=== PATIENT | male | born 1975 | race Hispanic/Latino ===

== ENCOUNTER 2020-11-22 10:12 | Inpatient (IN) | payer MEDICARE, OTHER ==
[~2020-11-22] VITALS: Ht 180.3 cm; Wt 90.6 kg
[2020-11-22] VITALS (20 sets, daily range): BP systolic 95–145; BP diastolic 47–75
[2020-11-22 11:13] LABS: BASOPHILS % (AUTO) 0.3 % (0.0-5.0); EOSINOPHILS % (AUTO) 0.3 % (0.0-8.0); HEMATOCRIT 38.8 % (42-54); LYMPHOCYTES % (AUTO) 8.9 % (21.0-51.0); MEAN CORPUSCULAR HGB CONC 34.8 g/dL (32.0-36.0); MEAN CORPUSCULAR VOLUME 91.9 fL (79-99); MONOCYTES % (AUTO) 4.5 % (3.0-13.0); NEUTROPHILS % (AUTO) 85.2 % (40.0-77.0); PLATELET COUNT (AUTO) 283 K/uL (130-400); RED BLOOD CELL COUNT(AUTO) 4.22 MIL/uL (4.50-6.20); RED CELL DISTRIBUTION WIDTH 12.1 % (11.0-15.5); WHITE BLOOD COUNT (AUTO) 20.5 K/uL (4.8-10.8)
[2020-11-22 11:22] LABS: CREATININE 1.4 mg/dL (0.5-1.5); POTASSIUM 3.2 mmol/L (3.5-5.1)
[2020-11-22 11:26] LABS: BILIRUBIN,TOTAL 0.9 mg/dL (0.2-1.0); TOTAL PROTEIN, SERUM 8.1 g/dL (6.0-8.3)
[2020-11-22] MEDS ORDERED: 0.9%NACL 1000ML 1,000 ML IV ONE (12:30)
[2020-11-22] MEDS ORDERED: ZOSYN 3.375GM+NS 50ML 3.38 GM in 0.9%NACL 50ML 50 ML IV SCH (12:30)
[2020-11-22] MEDS ORDERED: ZOSYN 3.375GM+NS 50ML 50 ML IV SCH (13:00)
[2020-11-22] MEDS ORDERED: GLUCAGON 1MG KIT 1 MG ML IM PRN ×2 (13:30→15:30)
[2020-11-22] MEDS ORDERED: ACETAMINOPHEN 325 MG TAB PO PRN (13:30)
[2020-11-22] MEDS ORDERED: VANCOMYCIN PROTOCOL PER PHARMACY IV SCH (13:30)
[2020-11-22] MEDS ORDERED: ONDANSETRON 4MG INJ IV PRN (13:30)
[2020-11-22] MEDS ORDERED: DIPHENHYDRAMINE HCL 25 MG CAPSULE PO PRN (13:30)
[2020-11-22] MEDS ORDERED: DEXTROSE 50%-WATER 50 ML DISP.SYRIN IV PRN ×2 (13:30→15:30)
[2020-11-22 13:51] LABS: ABG BASE EXCESS -4.2 mmol/L (-2.0-3.0); ABG OXYGEN SATURATION 96.2 % (95.0-99.0); ABG PCO2 30 mmHg (35-48)
[2020-11-22] MEDS ORDERED: COMPOUND IV REFRIGERATED 1 EACH IVSOLN MISC PRN (14:00)
[2020-11-22] MEDS ORDERED: 0.9%NACL 1000ML 2,259 ML IV ONE (15:00)
[2020-11-22] MEDS ORDERED: MIDAZOLAM HCL 1 MG/ML 2ML VIAL ONE (15:14)
[2020-11-22] MEDS ORDERED: PROPOFOL 10 MG/ML 20ML VIAL IV ONE (15:16)
[2020-11-22] MEDS ORDERED: SUCCINYLCHOLINE CHLORIDE 20 MG/ML 10 ML VIAL ONE (15:16)
[2020-11-22] MEDS ORDERED: LIDOCAINE PF 100MG/5ML (2%) SYRINGE 5ML ONE (15:16)
[2020-11-22] MEDS ORDERED: FENTANYL CITRATE PF 50 MCG/1 ML 2ML VIAL ONE ×2 (15:20→15:44)
[2020-11-22] MEDS ORDERED: VANCOMYCIN 1.75GM/250ML NS IV ONE ×2 (16:00)
[2020-11-22] MEDS: 0.9%NACL 1000ML 1,000 ML IV SCH ×3 (16:13→23:30)
[2020-11-22] MEDS ORDERED: MEPERIDINE-PF 25 MG/ML SYG ONE (16:21)
[2020-11-22] MEDS ORDERED: INSULIN HUMULIN R 100 UNIT/ML 3ML SQ SCH (16:30)
[2020-11-22 16:45] LABS: HEMOGLOBIN A1C 11.1 % (4.0-6.0)
[2020-11-22] MEDS: ACETAMINOPHEN 325 MG TAB PO PRN (20:12)
[2020-11-22] MEDS: ZOSYN 3.375GM+NS 50ML IV SCH (20:17)
[2020-11-22] MEDS: FAMOTIDINE 20MG VIAL IV SCH (20:17)
[2020-11-23] VITALS (7 sets, daily range): BP systolic 106–151; BP diastolic 62–78
[2020-11-23] MEDS ORDERED: 0.9% NACL 250ML 250 ML IV SCH (04:00)
[2020-11-23] MEDS ORDERED: VANCOMYCIN KIT 1 GM/250 ML IV.KIT IV SCH (04:00)
[2020-11-23] MEDS: ZOSYN 3.375GM+NS 50ML IV SCH ×3 (05:31→21:18)
[2020-11-23] MEDS: 0.9%NACL 1000ML 1,000 ML IV SCH ×2 (05:38→21:18)
[2020-11-23 06:47] LABS: HEMATOCRIT 30.1 % (42-54); MEAN CORPUSCULAR HEMOGLOBIN 31.4 pg (27.0-33.0); MEAN CORPUSCULAR HGB CONC 33.9 g/dL (32.0-36.0); MEAN CORPUSCULAR VOLUME 92.6 fL (79-99); RED BLOOD CELL COUNT(AUTO) 3.25 MIL/uL (4.50-6.20); RED CELL DISTRIBUTION WIDTH 12.3 % (11.0-15.5); WHITE BLOOD COUNT (AUTO) 17.2 K/uL (4.8-10.8)
[2020-11-23 08:00] LABS: ALBUMIN 1.3 g/dL (3.5-5.0); BILIRUBIN,TOTAL 0.7 mg/dL (0.2-1.0)
[2020-11-23] MEDS: INSULIN HUMULIN R 100 UNIT/ML 3ML SQ SCH ×7 (08:06→21:00)
[2020-11-23] MEDS: INSULIN GLARGINE 100 UNITS/ML 10 ML VIAL SQ SCH (08:17)
[2020-11-23] MEDS: ENOXAPARIN SODIUM 30 MG/0.3 ML SQ SCH (08:20)
[2020-11-23] MEDS: FAMOTIDINE 20MG VIAL IV SCH ×2 (08:20→21:18)
[2020-11-23 09:29] LABS: POTASSIUM 2.7 mmol/L (3.5-5.1)
[2020-11-23] MEDS: POTASSIUM CHLORIDE 20MEQ/100ML 100 ML IV PRN ×2 (10:11→18:09)
[2020-11-23] MEDS ORDERED: KCL 20 MEQ ERTAB PO SCH (10:30)
[2020-11-23] MEDS: ACETAMINOPHEN 325 MG TAB PO PRN (14:01)
[2020-11-23] MEDS ORDERED: MORPHINE 4 MG SYG ONE (16:10)
[2020-11-23] MEDS: VANCOMYCIN KIT 1 GM/250 ML IV.KIT IV SCH (16:59)
[2020-11-23] MEDS: MORPHINE 2 MG SYG IVP PRN (20:19)
[2020-11-24] MEDS: VANCOMYCIN KIT 1 GM/250 ML IV.KIT IV SCH ×3 (00:21→20:00)
[2020-11-24] MEDS: MORPHINE 4 MG SYG IV PRN ×2 (00:21→14:42)
[2020-11-24] MEDS: 0.9% NACL 250ML 250 ML IV SCH ×3 (00:21→16:00)
[2020-11-24 04:04] VITALS: BP 136/72
[2020-11-24] MEDS: ZOSYN 3.375GM+NS 50ML IV SCH ×3 (06:00→20:45)
[2020-11-24] MEDS: 0.9%NACL 1000ML 1,000 ML IV SCH ×2 (06:01→15:30)
[2020-11-24] MEDS: INSULIN HUMULIN R 100 UNIT/ML 3ML SQ SCH ×7 (06:53→21:00)
[2020-11-24 07:35] VITALS: BP 130/71
[2020-11-24] MEDS: INSULIN GLARGINE 100 UNITS/ML 10 ML VIAL SQ SCH (08:59)
[2020-11-24 09:01] LABS: HEMATOCRIT 30.8 % (42-54); MEAN CORPUSCULAR HEMOGLOBIN 31.7 pg (27.0-33.0); MEAN CORPUSCULAR HGB CONC 34.4 g/dL (32.0-36.0); MEAN CORPUSCULAR VOLUME 92.2 fL (79-99); RED BLOOD CELL COUNT(AUTO) 3.34 MIL/uL (4.50-6.20); RED CELL DISTRIBUTION WIDTH 12.8 % (11.0-15.5)
[2020-11-24] MEDS: ENOXAPARIN SODIUM 30 MG/0.3 ML SQ SCH (09:01)
[2020-11-24] MEDS: FAMOTIDINE 20MG VIAL IV SCH ×2 (09:02→20:46)
[2020-11-24] MEDS: MORPHINE 2 MG SYG IVP PRN ×2 (09:04→18:08)
[2020-11-24 09:16] LABS: ALBUMIN 1.3 g/dL (3.5-5.0); BILIRUBIN,TOTAL 0.6 mg/dL (0.2-1.0); CREATININE 0.9 mg/dL (0.5-1.5); TOTAL PROTEIN, SERUM 6.5 g/dL (6.0-8.3)
[2020-11-24 09:20] LABS: POTASSIUM 2.9 mmol/L (3.5-5.1)
[2020-11-24 11:35] VITALS: BP 150/76
[2020-11-24] MEDS: POTASSIUM CHLORIDE 20MEQ/100ML 100 ML IV PRN (12:05)
[2020-11-24] MEDS: LIDOCAINE HCL-MPF 1% 2ML VIAL IV PRN (12:10)
[2020-11-24] MEDS ORDERED: SODIUM HYPOCHLORITE 0.125% 473 ML SOLUTION TP SCH (15:00)
[2020-11-24 15:35] VITALS: BP 134/65
[2020-11-24 20:00] VITALS: BP 141/73
[2020-11-24] MEDS ORDERED: LIDOCAINE HCL-MPF 1% 2ML VIAL IV PRN (20:30)
[2020-11-24] MEDS ORDERED: POTASSIUM CHLORIDE 10% ELIXIR 20 MEQ/15 ML UDCUP PO PRN (20:30)
[2020-11-24] MEDS ORDERED: POTASSIUM CHLORIDE 20MEQ/100ML 100 ML IV PRN (20:30)
[2020-11-24] MEDS: KCL 20 MEQ ERTAB PO PRN (20:47)
[2020-11-25] VITALS: BP 140/67
[2020-11-25] MEDS: 0.9% NACL 250ML 250 ML IV SCH ×3 (00:44→16:29)
[2020-11-25] MEDS: VANCOMYCIN KIT 1 GM/250 ML IV.KIT IV SCH ×3 (00:44→16:29)
[2020-11-25] MEDS: MORPHINE 2 MG SYG IVP PRN ×3 (00:44→09:26)
[2020-11-25] MEDS: 0.9%NACL 1000ML 1,000 ML IV SCH ×3 (02:18→21:17)
[2020-11-25 04:00] VITALS: BP 139/68
[2020-11-25] MEDS: ZOSYN 3.375GM+NS 50ML IV SCH ×3 (05:20→20:54)
[2020-11-25] MEDS: INSULIN HUMULIN R 100 UNIT/ML 3ML SQ SCH ×7 (06:25→20:55)
[2020-11-25 07:30] LABS: HEMATOCRIT 29.3 % (42-54); MEAN CORPUSCULAR HEMOGLOBIN 31.7 pg (27.0-33.0); MEAN CORPUSCULAR HGB CONC 34.1 g/dL (32.0-36.0); RED BLOOD CELL COUNT(AUTO) 3.15 MIL/uL (4.50-6.20); RED CELL DISTRIBUTION WIDTH 12.9 % (11.0-15.5); WHITE BLOOD COUNT (AUTO) 15.2 K/uL (4.8-10.8)
[2020-11-25 07:40] VITALS: BP 144/70
[2020-11-25 07:47] LABS: ALBUMIN 1.2 g/dL (3.5-5.0); BILIRUBIN,TOTAL 0.6 mg/dL (0.2-1.0); CREATININE 0.8 mg/dL (0.5-1.5); TOTAL PROTEIN, SERUM 6.2 g/dL (6.0-8.3)
[2020-11-25 07:50] LABS: POTASSIUM 2.7 mmol/L (3.5-5.1)
[2020-11-25] MEDS: ENOXAPARIN SODIUM 30 MG/0.3 ML SQ SCH (09:28)
[2020-11-25] MEDS: INSULIN GLARGINE 100 UNITS/ML 10 ML VIAL SQ SCH (09:38)
[2020-11-25] MEDS: FAMOTIDINE 20MG VIAL IV SCH ×2 (09:39→20:53)
[2020-11-25 11:35] VITALS: BP 131/68
[2020-11-25] MEDS: LIDOCAINE HCL-MPF 1% 2ML VIAL IV PRN (12:23)
[2020-11-25] MEDS: POTASSIUM CHLORIDE 20MEQ/100ML 100 ML IV PRN (12:24)
[2020-11-25 15:35] VITALS: BP 159/77
[2020-11-25] MEDS: MORPHINE 4 MG SYG IV PRN (16:42)
[2020-11-25] MEDS: KCL 20 MEQ ERTAB PO PRN ×2 (19:27→21:18)
[2020-11-25 20:00] VITALS: BP 131/60
[2020-11-25] MEDS: MAGNESIUM 2GM PREMIX 50ML 50 ML IV PRN (20:54)
[2020-11-26] VITALS: BP 153/42
[2020-11-26] MEDS: VANCOMYCIN KIT 1 GM/250 ML IV.KIT IV SCH ×2 (01:12→08:04)
[2020-11-26] MEDS: 0.9% NACL 250ML 250 ML IV SCH ×3 (01:12→17:09)
[2020-11-26] MEDS: MORPHINE 4 MG SYG IV PRN ×2 (01:20→20:38)
[2020-11-26 04:00] VITALS: BP 143/71
[2020-11-26] MEDS: ZOSYN 3.375GM+NS 50ML IV SCH ×3 (05:12→20:38)
[2020-11-26 06:02] LABS: MEAN CORPUSCULAR HEMOGLOBIN 31.4 pg (27.0-33.0); MEAN CORPUSCULAR HGB CONC 33.4 g/dL (32.0-36.0); MEAN CORPUSCULAR VOLUME 93.9 fL (79-99); RED BLOOD CELL COUNT(AUTO) 3.09 MIL/uL (4.50-6.20); WHITE BLOOD COUNT (AUTO) 14.4 K/uL (4.8-10.8)
[2020-11-26 06:17] LABS: ALBUMIN 1.2 g/dL (3.5-5.0); BILIRUBIN,TOTAL 0.6 mg/dL (0.2-1.0); CREATININE 0.8 mg/dL (0.5-1.5); MAGNESIUM 1.8 mg/dL (1.80-2.40); TOTAL PROTEIN, SERUM 6.5 g/dL (6.0-8.3)
[2020-11-26 06:21] LABS: POTASSIUM 2.9 mmol/L (3.5-5.1)
[2020-11-26] MEDS: KCL 20 MEQ ERTAB PO PRN ×4 (06:28→15:16)
[2020-11-26] MEDS: MAGNESIUM 2GM PREMIX 50ML 50 ML IV PRN (06:34)
[2020-11-26] MEDS: 0.9%NACL 1000ML 1,000 ML IV SCH ×2 (06:42→20:38)
[2020-11-26] MEDS: INSULIN HUMULIN R 100 UNIT/ML 3ML SQ SCH ×4 (06:42→21:00)
[2020-11-26] MEDS: INSULIN GLARGINE 100 UNITS/ML 10 ML VIAL SQ SCH (08:04)
[2020-11-26 09:06] VITALS: BP 124/70
[2020-11-26] MEDS: FAMOTIDINE 20MG VIAL IV SCH ×2 (09:43→20:38)
[2020-11-26] MEDS: ENOXAPARIN SODIUM 30 MG/0.3 ML SQ SCH (09:43)
[2020-11-26 12:02] VITALS: BP 142/73
[2020-11-26 16:00] VITALS: BP 157/80
[2020-11-26] MEDS: VANCOMYCIN 1.25GM/NS 250ML IVPB SCH ×2 (17:09)
[2020-11-26] MEDS: MORPHINE 2 MG SYG IVP PRN (17:12)
[2020-11-26 20:00] VITALS: BP 143/71
[2020-11-27] VITALS: BP 152/72
[2020-11-27] MEDS: VANCOMYCIN 1.25GM/NS 250ML IVPB SCH ×6 (01:12→16:37)
[2020-11-27] MEDS: 0.9%NACL 1000ML 1,000 ML IV SCH ×2 (03:42→13:30)
[2020-11-27 04:00] VITALS: BP 138/68
[2020-11-27] MEDS: ZOSYN 3.375GM+NS 50ML IV SCH ×3 (05:13→20:31)
[2020-11-27] MEDS: INSULIN HUMULIN R 100 UNIT/ML 3ML SQ SCH ×4 (06:27→20:32)
[2020-11-27] MEDS: INSULIN GLARGINE 100 UNITS/ML 10 ML VIAL SQ SCH (07:32)
[2020-11-27 07:34] LABS: HEMATOCRIT 28.3 % (42-54); MEAN CORPUSCULAR HEMOGLOBIN 32.1 pg (27.0-33.0); MEAN CORPUSCULAR HGB CONC 33.9 g/dL (32.0-36.0); MEAN CORPUSCULAR VOLUME 94.6 fL (79-99); PLATELET COUNT (AUTO) 363 K/uL (130-400); RED BLOOD CELL COUNT(AUTO) 2.99 MIL/uL (4.50-6.20); RED CELL DISTRIBUTION WIDTH 12.9 % (11.0-15.5); WHITE BLOOD COUNT (AUTO) 14.1 K/uL (4.8-10.8)
[2020-11-27 07:47] LABS: CREATININE 0.8 mg/dL (0.5-1.5); MAGNESIUM 1.7 mg/dL (1.80-2.40)
[2020-11-27 08:00] VITALS: BP 139/71
[2020-11-27] MEDS: 0.9% NACL 250ML 250 ML IV SCH ×3 (08:00→16:00)
[2020-11-27 08:11] LABS: POTASSIUM 2.9 mmol/L (3.5-5.1)
[2020-11-27 08:38] LABS: LYMPHOCYTES % (MANUAL) 8 % (22-44); MAN.DIFF COMMENT-IMPRESSION MANUAL DIFFERENTIAL; MONOCYTES % (MANUAL) 5 % (2-9); SEGMENTED NEUTROPHILS % 87 % (40-70)
[2020-11-27 08:43] LABS: PLATELET MORPHOLOGY COMMENT SLIGHT INCREASED
[2020-11-27 08:59] LABS: ALBUMIN 1.2 g/dL (3.5-5.0); BILIRUBIN,TOTAL 0.5 mg/dL (0.2-1.0); TOTAL PROTEIN, SERUM 6.3 g/dL (6.0-8.3)
[2020-11-27] MEDS: POTASSIUM CHLORIDE 20MEQ/100ML 100 ML IV PRN (09:20)
[2020-11-27] MEDS: FAMOTIDINE 20MG VIAL IV SCH ×2 (09:21→20:31)
[2020-11-27] MEDS: KCL 20 MEQ ERTAB PO PRN ×4 (09:22→20:32)
[2020-11-27] MEDS: ENOXAPARIN SODIUM 30 MG/0.3 ML SQ SCH (09:23)
[2020-11-27] MEDS: MORPHINE 2 MG SYG IVP PRN (10:40)
[2020-11-27 12:00] VITALS: BP 138/69
[2020-11-27 15:52] VITALS: BP 146/70
[2020-11-27] MEDS: MORPHINE 4 MG SYG IV PRN ×2 (17:09→22:26)
[2020-11-27 20:00] VITALS: BP 141/73
[2020-11-28] VITALS: BP 140/66
[2020-11-28] MEDS: VANCOMYCIN 1.25GM/NS 250ML IVPB SCH ×6 (00:58→17:14)
[2020-11-28] MEDS: 0.9%NACL 1000ML 1,000 ML IV SCH ×3 (00:58→19:33)
[2020-11-28] MEDS: 0.9% NACL 250ML 250 ML IV SCH ×3 (00:58→17:15)
[2020-11-28 04:00] VITALS: BP 143/78
[2020-11-28] MEDS: ZOSYN 3.375GM+NS 50ML IV SCH ×3 (05:32→19:32)
[2020-11-28] MEDS: INSULIN HUMULIN R 100 UNIT/ML 3ML SQ SCH ×4 (06:06→19:42)
[2020-11-28 08:00] VITALS: BP 136/77
[2020-11-28] MEDS: FAMOTIDINE 20MG VIAL IV SCH ×2 (10:07→19:33)
[2020-11-28] MEDS: ENOXAPARIN SODIUM 30 MG/0.3 ML SQ SCH (10:08)
[2020-11-28] MEDS: INSULIN GLARGINE 100 UNITS/ML 10 ML VIAL SQ SCH (10:15)
[2020-11-28 12:00] VITALS: BP 133/65
[2020-11-28 16:00] VITALS: BP 148/65
[2020-11-28] MEDS: MORPHINE 4 MG SYG IV PRN (17:14)
[2020-11-28 20:00] VITALS: BP 153/68
[2020-11-29] VITALS: BP 128/71
[2020-11-29] MEDS: VANCOMYCIN 1.25GM/NS 250ML IVPB SCH ×4 (00:56→08:00)
[2020-11-29] MEDS: 0.9% NACL 250ML 250 ML IV SCH ×2 (00:56→08:30)
[2020-11-29 04:00] VITALS: BP 141/73
[2020-11-29] MEDS: ZOSYN 3.375GM+NS 50ML IV SCH ×2 (04:02→13:43)
[2020-11-29] MEDS: 0.9%NACL 1000ML 1,000 ML IV SCH (04:32)
[2020-11-29 05:04] LABS: BASOPHILS % (AUTO) 0.2 % (0.0-5.0); EOSINOPHILS % (AUTO) 0.5 % (0.0-8.0); HEMATOCRIT 28.7 % (42-54); LYMPHOCYTES % (AUTO) 21.8 % (21.0-51.0); MEAN CORPUSCULAR HEMOGLOBIN 31.7 pg (27.0-33.0); MEAN CORPUSCULAR HGB CONC 33.4 g/dL (32.0-36.0); MEAN CORPUSCULAR VOLUME 94.7 fL (79-99); MONOCYTES % (AUTO) 6.4 % (3.0-13.0); NEUTROPHILS % (AUTO) 70.5 % (40.0-77.0); PLATELET COUNT (AUTO) 408 K/uL (130-400); RED BLOOD CELL COUNT(AUTO) 3.03 MIL/uL (4.50-6.20); RED CELL DISTRIBUTION WIDTH 12.9 % (11.0-15.5); WHITE BLOOD COUNT (AUTO) 12.2 K/uL (4.8-10.8)
[2020-11-29] MEDS: INSULIN HUMULIN R 100 UNIT/ML 3ML SQ SCH ×2 (05:32→11:30)
[2020-11-29 05:56] LABS: CREATININE 0.8 mg/dL (0.5-1.5); POTASSIUM 3.5 mmol/L (3.5-5.1)
[2020-11-29] MEDS: KCL 20 MEQ ERTAB PO PRN (06:00)
[2020-11-29 08:24] VITALS: BP 150/80
[2020-11-29] MEDS: FAMOTIDINE 20MG VIAL IV SCH (08:30)
[2020-11-29] MEDS: ENOXAPARIN SODIUM 30 MG/0.3 ML SQ SCH (08:30)
[2020-11-29] MEDS: INSULIN GLARGINE 100 UNITS/ML 10 ML VIAL SQ SCH (08:44)
[2020-11-29 11:59] VITALS: BP 128/69
[2020-11-29 15:58] VITALS: BP 120/67
[2020-11-29] MEDS ORDERED: VANCOMYCIN 1G 1.5 GM in 0.9% NACL 250ML 250 ML IVPB SCH (21:00)
== END 2020-11-29 17:55 | DRG 853 ==
LOC: EDH 10:12 → EDHIP 10:13 → 3DH 15:56
PROVIDERS: ADMIT Internal Medicine; ATTEND Internal Medicine
PROC: 0KBQ0ZZ Excision of Right Upper Leg Muscle, Open Approach (ICD-10-PCS; principal; 2020-11-22 15:45)
DX: A41.9 Sepsis, unspecified organism (principal); E43 Unspecified severe protein-calorie malnutrition; E87.1 Hypo-osmolality and hyponatremia; L03.115 Cellulitis of right lower limb; L02.31 Cutaneous abscess of buttock; L02.415 Cutaneous abscess of right lower limb; E87.6 Hypokalemia; E11.65 Type 2 diabetes mellitus with hyperglycemia; Z20.822 Contact with and (suspected) exposure to COVID-19; F17.210 Nicotine dependence, cigarettes, uncomplicated; Z68.27 Body mass index [BMI] 27.0-27.9, adult
CPT/HCPCS: 36415; 36600; 80048; 80053; 80202; 82010; 82803; 82948; 83036; 83605; 83735; 84132; 85025; 85027; 87040; 87070; 87076; 87205; 87635; G0378; J0330; J1650; J1815; J2001; J2175; J2250; J2270; J2405; J2543; J2704; J3010; J3370; J3475; J3480; J3490; J7030; J7050; J7120

== ENCOUNTER → 2021-01-15 | Outpatient (CLI) | payer MEDICARE ==
[~2021-01-15] MED LIST: LIDOCAINE HCL 4% LTA SOL 4 ML VIAL TP ONE; SILVER NITRATE APPLICATOR 1 SWAB TP ONE
== END | disposition home or self-care (01) ==
LOC: WHH 09:22
PROVIDERS: ATTEND Family Medicine
DX: T81.89XD Other complications of procedures, not elsewhere classified, subsequent encounter (principal); E11.628 Type 2 diabetes mellitus with other skin complications; S71.101D Unspecified open wound, right thigh, subsequent encounter; L03.115 Cellulitis of right lower limb; F17.210 Nicotine dependence, cigarettes, uncomplicated; Z79.4 Long term (current) use of insulin; Y83.8 Other surgical procedures as the cause of abnormal reaction of the patient, or of later complication, without mention of misadventure at the time of the procedure; X58.XXXD Exposure to other specified factors, subsequent encounter
CPT/HCPCS: 17250; A4450; A6209

== ENCOUNTER → 2021-01-22 | Outpatient (CLI) | payer MEDICARE | END | disposition home or self-care (01) | LOC: WHH 08:52 | PROVIDERS: ATTEND Family Medicine | DX: T81.89XD Other complications of procedures, not elsewhere classified, subsequent encounter (principal); E11.628 Type 2 diabetes mellitus with other skin complications; S71.101D Unspecified open wound, right thigh, subsequent encounter; L03.115 Cellulitis of right lower limb; F17.210 Nicotine dependence, cigarettes, uncomplicated; Z79.4 Long term (current) use of insulin; X58.XXXD Exposure to other specified factors, subsequent encounter; Y83.8 Other surgical procedures as the cause of abnormal reaction of the patient, or of later complication, without mention of misadventure at the time of the procedure | CPT/HCPCS: 17250; A6209 ==

== ENCOUNTER → 2021-01-29 | Outpatient (CLI) | payer MEDICARE | END | disposition home or self-care (01) | LOC: WHH 08:59 | PROVIDERS: ATTEND Family Medicine | DX: T81.89XD Other complications of procedures, not elsewhere classified, subsequent encounter (principal); E11.628 Type 2 diabetes mellitus with other skin complications; S71.101D Unspecified open wound, right thigh, subsequent encounter; L03.115 Cellulitis of right lower limb; F17.210 Nicotine dependence, cigarettes, uncomplicated; Z79.4 Long term (current) use of insulin; X58.XXXD Exposure to other specified factors, subsequent encounter; Y83.8 Other surgical procedures as the cause of abnormal reaction of the patient, or of later complication, without mention of misadventure at the time of the procedure | CPT/HCPCS: 17250 ==

== ENCOUNTER → 2021-02-05 | Outpatient (CLI) | payer MEDICARE | END | disposition home or self-care (01) | LOC: WHH 09:05 | PROVIDERS: ATTEND Family Medicine | DX: T81.89XD Other complications of procedures, not elsewhere classified, subsequent encounter (principal); E11.628 Type 2 diabetes mellitus with other skin complications; S71.101D Unspecified open wound, right thigh, subsequent encounter; L03.115 Cellulitis of right lower limb; F17.210 Nicotine dependence, cigarettes, uncomplicated; Z79.4 Long term (current) use of insulin; X58.XXXD Exposure to other specified factors, subsequent encounter; Y83.8 Other surgical procedures as the cause of abnormal reaction of the patient, or of later complication, without mention of misadventure at the time of the procedure | CPT/HCPCS: 99214 ==